=== PATIENT | male | born 1985 | race Caucasian/White ===

== ENCOUNTER 2016-08-17 21:46 | Inpatient (IN) | payer SELFPAY ==
--- NOTE | ~2016-08-17 | HP ---
Unit #: [id number] #: [id number] Patient: BARON MOYA [id number] [place] [address] [id number] I MR#: [id number] NAME: BARON MOYA. ROOM: [facility] Age: 31 Sex: M Admission Date: 08/17/2016 : 1985 Attending Physician: Toi Turner M.D. Admitting Physician: Toi Turner M.D. Primary Care Physician: Generic Doctor Not In System HISTORY AND PHYSICAL HISTORY OF PRESENT ILLNESS Baron is a 31-year-old male admitted on 08/17/2016 for detox from alcohol. PAST MEDICAL HISTORY None. PAST SURGICAL HISTORY None. SOCIAL HISTORY Smokes 1 packet of cigarettes daily. Binge alcohol use. No illegal drug use. He is currently single and living with roommates. FAMILY HISTORY Noncontributory. REVIEW OF SYSTEMS CONSTITUTIONAL: No fever or chills. HEENT: Denies any sore throat, ear pain or runny nose. CARDIOVASCULAR: Denies chest pain, irregular heart rhythm or palpitations. CHEST: Denies shortness of breath or cough. No hemoptysis. GASTROINTESTINAL: Denies nausea, vomiting, diarrhea or chronic constipation. ENDOCRINE: Denies history of increased thirst or urination. No recent significant weight loss or gain. GENITOURINARY: Denies dysuria, frequency, or hematuria. SKIN: Denies any rashes. HEMATOLOGIC: Denies history of increased bleeding or bruising. MUSCULOSKELETAL: Denies any hot, swollen joints. No generalized muscle pain. NEUROLOGIC: Denies problems with vision or speech. No frequent, severe headaches. No numbness, tingling or weakness in any extremities. Denies loss of bladder or bowel control. CURRENT MEDICATIONS None. ALLERGIES Peanuts, shrimp, and Tylenol. PHYSICAL EXAMINATION GENERAL: Alert, oriented, no acute distress. Unit #: [id number] #: [id number] Patient: BARON MOYA VITAL SIGNS: Blood pressure 179/96, respirations 16, heart rate 102. HEIGHT: 6 feet 0. WEIGHT: 164 pounds. SKIN: Warm, dry. No rashes or lesions, track grey, cuts, etc. HEENT: Normocephalic. TMs not viewed. Oronasal passages clear. Conjunctivae clear. PERRLA. EOM is intact. NECK: No lymphadenopathy or thyromegaly. HEART: Regular rate and rhythm. No murmur, gallop, or rub. LUNGS: Clear to auscultation bilaterally. ABDOMEN: Soft, nontender without palpable masses or hepatosplenomegaly. : Not assessed. EXTREMITIES: No evidence of cyanosis, clubbing, or edema. Moves all extremities independently without obvious deficit. NEUROLOGICAL: Grossly within normal limits. Cranial Nerves: II: Visual vargas are intact. III, IV AND : Extraocular movements are intact. Pupils are equal, round and reactive to light. V: Facial sensation is grossly normal. VII: Facial movements and expression are normal. VIII: Auditory acuity grossly intact. IX, X: Uvula is midline. Phonation is normal. XI: Patient shrugs shoulders and turns head normally. XII: Tongue protrudes in the midline. Sensory and Motor Function: Sensory and motor sensation is grossly normal. Motor: moves all extremities well. Coordination: Gait is normal. Deep Tendon Reflexes: Intact. IMPRESSION Psychiatric admission. RECOMMENDATIONS PSYCHIATRIC: Per psychiatrist. MEDICAL: No contraindication to participating in this facility's activities. MEDICAL PROGNOSIS Good. MEDICAL CONDITION Stable. Dictated by... Carlo Scott TD: 08/18/2016 15:21 JOB #: [id number] Unit #: [id number] #: [id number] Patient: BARON MOYA HISTORY AND PHYSICAL Page 1 of 1 X BE PIERRE APRN X HISTORY AND PHYSICAL
--- NOTE | ~2016-08-17 | PN ---
Unit #: [id number] #: [id number] Patient: BARON MOYA [id number] [facility] [address] [place] [address] [id number] I MR#: [id number] NAME: BARON MOYA. ROOM: [facility] Age: 31 Sex: M Admission Date: 08/17/2016 : 1985 Attending Physician: Toi Turner M.D. Admitting Physician: Toi Turner M.D. Primary Care Physician: Generic Doctor Not In System [facility] PROGRESS NOTES DATE OF SERVICE 08/19/2016 DISCUSSION Baron Moya is a 31-year-old male seen on 08/19/2016. The patient interviewed, chart reviewed. Obtained information from nursing staff. The patient was compliant, cooperative. Mood sad, dysphoric, flat affect, guarded. The patient's vital signs 98.2, 127, 18, 183/97. Complete Review of Systems: Unremarkable. MENTAL STATUS EXAMINATION The patient dressed casually. Attention span, concentration: Fair. Oriented in place and person. Mood and affect: Sad, dysphoric. Speech: Monotone. Thought process: [place]. The patient denied any thoughts of harming self or others but guarded. Recent and remote memory: Poor. Insight and judgment: Poor. DIAGNOSIS Alcohol use disorder, severe. ASSESSMENT/PLAN Advised to continue with current medication and therapeutic protocol. If needed, consider further adjustment of medication. Dictated by... Toi Turner M.D. SZMaria/mitchg TD: 08/21/2016 08:00 JOB #: [id number] Unit #: [id number] #: [id number] Patient: BARON MOYA [facility] PROGRESS NOTES Page 1 of 1 X Toi Turner MD PROGRESS NOTE
--- NOTE | ~2016-08-17 | PA ---
Unit #: [id number] #: [id number] Patient: BARON MOYA [id number] [facility] [address] [place] [address] [id number] I MR#: [id number] NAME: BARON MOYA. ROOM: [facility] Age: 31 Sex: M Admission Date: 08/17/2016 : 1985 Date of Assessment: Attending Physician: Toi Turner M.D. Admitting Physician: Toi Turner M.D. PSYCHIATRIC ASSESSMENT INFORMANT The patient reliability, fair; chart reliability, good. CHIEF COMPLAINT Alcohol abuse and withdrawal. HISTORY OF PRESENT ILLNESS Mr. Baron Moya is a 31-year-old male, presented with the above-mentioned complaint. The patient presenting with the alcohol use disorder, reported drinking two-fifth of vodka daily. Longest period of sobriety was 2 months. The patient denied any suicidal or homicidal ideation. Denied any psychotic symptom. Needing help with the alcohol detox. The patient also reported using marijuana. The patient reported marijuana use, age of onset 17; alcohol, age of onset 21; tobacco, age of onset 17. Longest period of sobriety 2 months and last period of sobriety 2 years ago. The patient reported history of blackouts and withdrawal symptom. No IV drug use or hepatitis or HIV. The patient reporting symptoms such as abdominal cramping, muscle cramping, diaphoresis, diarrhea, depressed mood, headache, irritability, poor concentration, and tremor. Needing inpatient admission for detox. PAST PSYCHIATRIC HISTORY Unremarkable for any history of any previous treatment. FAMILY HISTORY/SOCIAL HISTORY The patient has a poor support system. No history of any abuse. MEDICAL HISTORY Unremarkable for any chronic medical illness. Musculoskeletal; muscle strength and tone, no atrophy or abnormal movement. Gait normal. MEDICATION HISTORY None. ALLERGIES No known drug allergies. SUBSTANCE ABUSE HISTORY Please see above. REVIEW OF SYSTEMS HEENT: Eyes, clear. Ears, nose, mouth, and throat; clear. CARDIOVASCULAR: Unremarkable. Unit #: [id number] #: [id number] Patient: BARON MOYA RESPIRATORY: Unremarkable. GI: Unremarkable. : Unremarkable. SKIN: Unremarkable. LYMPH NODE: Unremarkable. NEUROLOGIC: Unremarkable. ENDOCRINE: Unremarkable. HEMATOLOGIC: Unremarkable. ALLERGIC/IMMUNOLOGIC: Unremarkable. MUSCULOSKELETAL: Muscle strength and tone, no atrophy or abnormal movement. Gait normal. MENTAL STATUS EXAMINATION CONSTITUTIONAL: Measurement of vital signs; temperature 98.2, pulse 95, respirations 18, and blood pressure 161/112, height 6 feet, and weight 164 pounds. GENERAL APPEARANCE: The patient dressed casually. The patient did not show any facial deformity. MUSCULOSKELETAL: Please see above. PSYCHIATRIC EXAMINATION Description of speech; regular rate, normal volume, normal articulation. Description of thought process, goal directed. Description of association, intact. Description of abnormal psychotic thinking; the patient denied any hallucination, delusions, or any suicidal or homicidal ideation, but withdrawal symptom and substance abuse. Description of the patient's judgment, concerning everyday activity, poor. Social situation, poor. Concerning psychiatric condition, poor. Complete mental status examination; oriented in time, place, and person. Recent and remote memory, fair. Attention span and concentration, fair. Language, able to name object and repeat phrases. Fund of knowledge, aware of current event, passive vocabulary intact. Mood and affect, sad and dysphoric. Insight and judgment, fair to poor. ASSETS AND LIABILITIES Assets; the patient is articulate, able to take care of his ADL. Liability, history of substance abuse. ADMITTING DIAGNOSES Psychiatric: Alcohol use disorder, severe, F10.20. Secondary diagnosis: Deferred. Medical diagnosis: None. Stressors: Psychosocial stressors. PSYCHIATRIC PLAN AND TREATMENT GOAL AND DISCHARGE PLAN 1. Advised to admit the patient on the inpatient unit. Provide safe, supportive, and structured environment. 2. Ordered detox protocol and detox monitoring. 3. The patient to attend all the programing group therapy, individual therapy, family session if possible. If needed, consider further adjustment of medication. 4. Treatment goal; to attain euthymic mood, gain insight into his problem, and learn coping skills. 5. Discharge plan; plan to stabilize the patient and consider followup in Unit #: [id number] #: [id number] Patient: BARON MOYA outpatient program. ESTIMATED LENGTH OF STAY 3 to 5 days. Dictated by.Kassandra Turner M.D. ETEVLINA/rufina TD: 08/18/2016 19:07 JOB #: [id number] PSYCHIATRIC ASSESSMENT Page 1 of 1 X Toi Turner MD PSYCHIATRIC ASSESSMENT
--- NOTE | ~2016-08-17 | DS ---
Unit #: [id number] #: [id number] Patient: TEODORO MOYA [id number] [facility] [address] [place] [address] [id number] I MR#: [id number] NAME: TEODORO MOYA. ROOM: [facility] Age: 31 Sex: M Admission Date: 08/17/2016 : 1985 Discharge Date: 08/20/2016 Attending Physician: Toi Turner M.D. Primary Care Physician: Generic Doctor Not In System DISCHARGE SUMMARY REASON FOR ADMISSION Alcohol abuse. DIAGNOSTIC STUDIES LABORATORY RESULTS: Remarkable for glucose 58, total bilirubin 3.4, and sodium 134. HOSPITAL COURSE The patient was admitted to inpatient unit on 08/17/2016 and discharged on 08/20/2016. The patient was treated on the inpatient unit with behavior management, chemical dependency group, psychoeducation, psychotherapy, and detox protocol. The patient responded well with the above modalities of treatment. Subsequently, the patient was discharged with a plan to follow up in outpatient program. DISCHARGE MEDICATIONS None. DISCHARGE DIAGNOSES Psychiatric: Alcohol use disorder, severe, F10.20. Secondary diagnosis: Deferred. Medical diagnosis: None. Stressors: Psychosocial stressors. DISCHARGE INSTRUCTIONS The patient is to follow up in outpatient program as per psychologist social. CONDITION ON DISCHARGE The patient was pleasant and cooperative. Denied any psychotic symptom or any suicidal ideation. PROGNOSIS Guarded. DIET AND ACTIVITY As tolerated. Dictated by... Toi Turner M.D. Unit #: [id number] #: [id number] Patient: TEODORO MOYA SZC/modl TD: 08/20/2016 17:52 JOB #: [id number] DISCHARGE SUMMARY Page 1 of 1 X Toi Turner MD X DISCHARGE SUMMARY
[2016-08-18 11:23] LABS: BASOPHIL% 0.4 % (0-2.5); EOSINOPHIL% 0.4 % (0.0-7.0); HEMATOCRIT 44.5 % (38.0-50.0); HEMOGLOBIN 15.3 gm/dL (13.0-16.0); LYMPHOCYTE# 2.2 X10e3 (1.0-3.5); LYMPHOCYTE% 27.3 % (17.0-45.0); MEAN CELL VOLUME 101.1 FL (83-96); MEAN CORPUSCULAR HEMOGLOBIN 34.8 PG (28-34); MEAN CORPUSCULAR HGB CONC 34.4 g/dL (30-36); MEAN PLATELET VOLUME 7.5 FL (6.5-11.5); MONOCYTE% 12.6 % (3.0-12.0); NEUTROPHIL# 4.9 X10e3 (1.5-7.1); NEUTROPHIL% 59.3 % (40-75); PLATELET COUNT 169 X10e3 (140-420); RED CELL DISTRIBUTION WIDTH 13.4 % (11.0-15.5); WHITE BLOOD COUNT 8.2 X10e3 (4.0-10.5)
[2016-08-18 11:24] LABS: DIFF IND NO
[2016-08-18 12:00] LABS: ALBUMIN SERUM 4.3 g/dL (3.5-5.0); BILIRUBIN,TOTAL 3.4 mg/dL (0.2-2.0); BUN/CREATININE RATIO 18.33; CALCIUM SERUM 9.6 mg/dL (8.4-10.2); CREATININE SERUM 0.6 mg/dL (0.6-1.4); POTASSIUM 4.1 mmol/L (3.5-5.1)
== END 2016-08-20 10:00 | disposition home or self-care (01) | DRG 897 ==
LOC: P1E 21:46
PROVIDERS: Psychiatry & Neurology Psychiatry
PROC: HZ2ZZZZ Detoxification Services for Substance Abuse Treatment (ICD-10-PCS; principal; 2016-08-17)
DX: F10.20 Alcohol dependence, uncomplicated (principal); F17.210 Nicotine dependence, cigarettes, uncomplicated
CPT/HCPCS: 80053; 85025